=== PATIENT | female | born 2005 | race Caucasian/White ===

== ENCOUNTER 2023-04-19 20:58 | Emergency (ER) | payer SELFPAY ==
--- NOTE | ~2023-04-19 | XR_ITS ---
EXAMINATION: XR chest 1V portable DATE: 04/19/2023 23:04 INDICATION: Chest pain. TECHNIQUE: A single frontal view of the chest was obtained. COMPARISON: None. FINDINGS: There is no pneumonia, pleural effusion, or pneumothorax. The heart size is normal. IMPRESSION: 1. No acute cardiopulmonary disease. Reviewed, dictated and finalized at location E. [employer]
--- NOTE | 2023-04-19 21:00 | ECG_ITS ---
Measurements Intervals [place] Rate: 99 P: 58 IN: 151 QRS: 45 QRSD: 92 T: 48 QT: 315 QTc: 406 Interpretive Statements SINUS RHYTHM DELAYED PRECORDIAL R/S TRANSITION BORDERLINE ECG NO PREVIOUS ECG AVAILABLE FOR COMPARISON Electronically Signed On 04-20-2023 9:44:26 CDT by Stew Staton D.O.
[2023-04-19 21:01] VITALS: BP 140/86; PULSE 109; RESP 15; TEMP 36.6; O2SAT 100
[2023-04-19 21:19] VITALS: PULSE 112; O2SAT 100
--- NOTE | 2023-04-19 21:22 | ED.GENADULT ---
HPI - General Adult General Chief complaint: Chest Pain Stated complaint: chest pain Time Seen by Provider: 04/19/23 21:08 History of Present Illness HPI narrative: This is a 18-year-old female presenting ED with a chief complaint of chest pain. Patient has been having chest pain 3 days. It occurred while she was walking, is described as a stabbing pain in the center of her chest that is nonradiating, 9 out 10 intensity and comes and goes. It lasts for approximately 5 minutes before resolving. She says the pain improves with deep breaths. It is associated with nervousness and anxiety. She notes dyspnea on exertion. Patient denies fevers chills recent cold symptoms nausea vomiting diarrhea abdominal pain lower extremity edema risk factors for DVT. Patient did have a wine cooler today and 4 lokos yesterday. Related Data Allergies Allergy/AdvReac Type Severity Reaction Status Date / Time No Known Allergies Allergy Verified 04/19/23 21:19 [facility] Social History Social History Social History: Occasional alcohol use, vapes Exam Narrative: APPEARANCE: No apparent distress. Head: atraumatic. EYES: EOMI, NOSE: Atraumatic NECK: Trachea midline RESPIRATORY: No increased rate of breathing clear auscultation CARDIOVASCULAR: RRR, no peripheral edema ABDOMINAL: Non-distended MUSCULOSKELETAl: No obvious deformities NEURO: Alert. Moving 4/4 extremities SKIN:: Warm, dry. Normal color PSYCHIATRIC: Normal affect Course Vital Signs Vital signs: Vital Signs Temperature 97.8 F 04/19/23 21:01 Pulse Rate 109 H 04/19/23 21:01 Respiratory Rate 15 04/19/23 21:01 Blood Pressure 140/86 04/19/23 21:01 Pulse Oximetry 100 04/19/23 21:01 Oxygen Delivery Room Air 04/19/23 21:01 Temperature 97.8 F 04/19/23 21:01 Pulse Rate 89 04/19/23 22:43 Respiratory Rate 15 04/19/23 22:43 Blood Pressure 148/96 H 04/19/23 21:49 Pulse Oximetry 100 04/19/23 22:43 Oxygen Delivery Room Air 04/19/23 21:19 Medical Decision Making MDM Narrative Medical decision making narrative: -Course: Patient's EKGs and labs are reviewed without significant high risk changes. Cardiac risk factors reviewed. Heart score is <4 and it iss reasonable for further risk stratification to be performed as outpatient. Pain was not sudden or maximal onset not tearing or ripping quality. No other signs or symptoms suggest aortic dissection. A low risk Wells criteria is noted. PE is felt to be unlikely. No pneumonia seen on evaluation today. Patient is felt to be reasonable candidate for continued evaluation as an outpatient. Pain improved with NSAIDs. Discharged with Motrin Tylenol primary care follow-up -DDX includes but is not limited to: Pleurisy, chest wall pain, PE, ACS, pneumonia, pneumothorax, anxiety -Co-morbidities complicating care: Developmental delay -Social determinants of health: Patient works at [employer] taking care of her grandmother with Alzheimer's, lives with her stepmother -Hx from independent Sources: Stepmother @ bedside -Independent interpretation of studies: Independent EKG interpretation: Rhythm [sinus], Rate 99, Hardy -[normal], CA -[normal], QRS [narrow], QTC [normal], T waves -[negative for concerning inversions], ST Segments - [Negative for concerning elevations] Final interpretations: [Normal Sinus Rhythm] laboratory studies including D-dimer troponin BNP all within normal limits. -Interventions: 2 L normal saline, Toradol, Tylenol -Shared decision making / Disposition:discharged -RX motrin/tylenol Vital Signs Vital Signs: Vital Signs Temperature 97.8 F 04/19/23 21:01 Pulse Rate 109 H 04/19/23 21:01 Respiratory Rate 15 04/19/23 21:01 Blood Pressure 140/86 04/19/23 21:01 Pulse Oximetry 100 04/19/23 21:01 Oxygen Delivery Room Air 04/19/23 21:01 Temperature 97.8 F 04/19/23 21:01 Pulse Rate 89 03/0
[2023-04-19 21:31] VITALS: BP 148/96; PULSE 107; RESP 22; O2SAT 100
[2023-04-19 21:49] VITALS: BP 148/96; PULSE 107; RESP 21; O2SAT 100
[2023-04-19] MEDS: ACETAMINOPHEN 500 MG TABLET 1000 MG PO (21:53)
[2023-04-19] MEDS: KETOROLAC 15 MG/ML VIAL (*BKC) IV PUSH (21:54)
[2023-04-19] MEDS: SODIUM CHLORIDE 0.9% IV 2,000 ML 999 ML IV CONT (21:54)
[2023-04-19 21:59] LABS: Basophils Percent Auto 0.3 % (0.2-1.2); Eosinophils Absolute Auto 0.1 K/mm3 (0-0.3); Eosinophils Percent Auto 0.7 % (0-4.4); Hematocrit 39.2 % (37.0-47.0); Hemoglobin 12.8 g/dL (12.0-15.0); Immature Granulocyte Absolute 0.05 K/mm3 (0.00-0.031); Immature Granulocyte Percent A 0.5 % (0-0.5); Lymphocytes Absolute Auto 3.61 K/mm3 (0.9-3.2); Lymphocytes Percent Auto 32.9 % (18.3-44.2); Mean Corpuscular HGB Conc 32.7 g/dl (32-36); Mean Corpuscular Hemoglobin 28.3 pg (26-34); Mean Corpuscular Volume 86.7 fl (80-100); Mean Platelet Volume 9.8 fl (7.4-10.4); Monocytes Absolute Auto 0.9 K/mm3 (0.1-0.6); Monocytes Percent Auto 8.3 % (2.6-8.5); Neutrophils Absolute Auto 6.3 K/mm3 (1.3-6.7); Neutrophils Percent Auto 57.3 % (45.5-73.1); Platelet Count Result 401 k/mm3 (150-375); Red Blood Count 4.52 M/mm3 (4.2-5.4); Red Cell Distribution Width 12.5 % (11.5-14.5)
[2023-04-19 22:09] LABS: Ethanol < 10 mg/dL (<10)
[2023-04-19 22:10] LABS: Alanine Aminotransferase 22 U/L (6-35); Albumin Level 4.7 g/dL (3.7-5.6); Alkaline Phosphatase 62 U/L (45-116); Anion Gap 12 mmol/L (8-16); Aspartate Amino Transferase 24 U/L (14-36); Bilirubin,Total 0.4 mg/dL (0.2-1.3); Blood Urea Nitrogen 9 mg/dL (8-21); Carbon Dioxide 21 mmol/L (22-30); Chloride 106 mmol/L (98-107); Estimated CRCL calculation 129 ml/min; Estimated Glomerular Filt Rate > 60; Glucose 101 mg/dL (65-110); Potassium 4.1 mmol/L (3.4-5.0); Sodium 139 mmol/L (134-143)
[2023-04-19 22:15] LABS: Appearance Urine Clear (Clear); Bilirubin Urine Negative (Negative); Blood Urine Negative (Negative); Color Urine Yellow (Yellow); Glucose Urine UA Negative (Negative); Ketones Urine Negative (Negative); Leukocyte Esterase Ur Negative LEU/UL (Negative); Nitrate Urine Negative (Negative); Protein Urine Negative (Negative); Specific Grav Ur 1.003 (1.001-1.035); Urobilinogen Urine 0.2 mg/dL (<2.0); pH Urine 7.5 (5.0-9.0)
[2023-04-19 22:18] LABS: Add Urine Microscopic? NO
[2023-04-19 22:21] LABS: NT Pro B Type Natriuretic Pept 25 pg/mL (19.9-100); Troponin I < 0.012 ng/mL (0.000-0.034)
[2023-04-19 22:23] LABS: Prothrombin Time 13.3 Seconds (11.1-14.7)
[2023-04-19 22:24] LABS: Partial Thromboplastin Time 26.1 SECONDS (22.3-36.8)
[2023-04-19 22:29] LABS: D Dimer < 0.27 ug/mL (<0.48)
[2023-04-19 22:30] LABS: Amphetamine Screen Urine Negative (Negative); Barbiturate Screen Urine Negative (Negative); Benzodiazepines Screen Urine Negative (Negative); Cannabinoid Screen Urine Negative (Negative); Cocaine Screen Urine Negative (Negative); Methadone Screen Urine Negative (Negative); Opiate Screen Urine Negative (Negative); Phencyclidine Screen Urine Negative (Negative)
[2023-04-19 22:35] LABS: Influenza A QL RT-PCR Negative (Negative); Influenza B QL RT-PCR Negative (Negative); RSV RNA, RT-PCR Negative (Negative); SARS-CoV-2 RNA PCR Negative (Negative)
[2023-04-19 22:43] VITALS: PULSE 89; RESP 15; O2SAT 100
== END 2023-04-19 23:15 | disposition home or self-care (01) ==
PROVIDERS: Emergency Provider Emergency Medicine
DX: R07.89 Other chest pain (principal); Z20.822 Contact with and (suspected) exposure to COVID-19
CPT/HCPCS: 36415; 71045; 80053; 80307; 81003; 81025; 83880; 84484; 85025; 85380; 85610; 85730; 87637; 93005; 96361; 96374; 99284; A9270; J1885; J7030